=== PATIENT | male | born 1990 | race Caucasian/White ===

== ENCOUNTER 2017-02-24 08:24 | Emergency (ER) | payer SELFPAY ==
[2017-02-24 08:43] VITALS: BP 99/54; PULSE 78; TEMP 97.7; BMI 19.0
[2017-02-24] MEDS ORDERED: IBUPROFEN 400 MG TABLET (FP) PO ONE ×2 (09:21→09:34)
--- NOTE | 2017-02-24 09:23 | PDOC ---
History of Present Illness - General Chief Complaint: Pain, Acute Stated Complaint: NECK PROBLEM Time Seen by Provider: 02/24/17 09:11 History Source: Patient Exam Limitations: No Limitations - History of Present Illness Initial Comments: 02/24/17 11:36 My chief complaint: Swollen lymph nodes History of Present Illness: Pt. is a 26-year-old male with a history of HIV from patient reports that he started to notice swollen lymph nodes tonsillar area yesterday and felt as if he had chills. Patient denies having a sore throat or any difficulty swallowing or breathing. Patient is complaining of tenderness on lymph nodes. Patient denies any cough, nausea, vomiting, or diarrhea or any other symptoms. He reports that his last viral load a couple months ago was undetectable. Timing/Duration: getting worse Severity: mild Associated Symptoms: reports: fever/chills (since yesterday ), other (swelling of tonsillar lymph nodes) Past History - Past Medical History Allergies/Adverse Reactions: Allergies Allergy/AdvReac Type Severity Reaction Status Date / Time esomeprazole magnesium Allergy Verified 02/24/17 08:39 [From Nexium] sulfamethoxazole Allergy Verified 02/24/17 08:39 [From Bactrim] trimethoprim [From Bactrim] Allergy Verified 02/24/17 08:39 Home Medications: Ambulatory Orders Amoxicillin - [Amoxicillin 500mg Capsule -] 1,000 mg PO DAILY #20 capsule Other medical history: HIV since - Immunization History Immunization Up to Date: Yes - Suicide/Smoking/Psychosocial Hx Smoking History: Unknown if ever smoked Information on smoking cessation initiated: No Hx Alcohol Use: No Drug/Substance Use Hx: No Substance Use Type: None Review of Systems - Review of Systems Able to Perform ROS?: Yes Constitutional: Yes: Fever (subjective since yesterday ) HEENTM: No: Symptoms Reported Respiratory: No: Symptoms reported Cardiac (ROS): No: Symptoms Reported ABD/GI: No: Symptoms Reported : No: Symptoms Reported Musculoskeletal: No: Symptoms Reported Integumentary: No: Symptoms Reported Hematologic/Lymphatic: Yes: Swollen Glands (tonsillar b/l ) *Physical Exam - Vital Signs Last Vital Signs Temp Pulse Resp BP Pulse Ox 97.7 F 78 15 99/54 99 02/24/17 08:40 02/24/17 08:40 02/24/17 08:40 02/24/17 08:40 02/24/17 08:40 - Physical Exam General Appearance: Yes: Appropriately Dressed HEENT: positive: Pharyngeal Erythema. negative: Tonsillar Exudate, Tonsillar Erythema Neck: positive: Lymphadenopathy (R), Lymphadenopathy (L) (tonsillar ). negative : Rigidity, Tender lateral, Tender midline Respiratory/Chest: positive: Lungs Clear, Normal Breath Sounds. negative: Chest Tender, Respiratory Distress Cardiovascular: positive: Regular Rhythm, Regular Rate, S1, S2 Neurologic: positive: Alert, Normal Response, Responsive Medical Decision Making - Medical Decision Making 02/24/17 11:09 Pt. is a 26-year-old male with a history of HIV from patient reports that he started to notice swollen lymph nodes tonsillar area yesterday and felt as if he had chills. Patient denies having a sore throat or any difficulty swallowing or breathing. Patient is complaining of tenderness on lymph nodes. Patient denies any cough, nausea, vomiting, or diarrhea or any other symptoms. He reports that his last viral load a couple months ago was undetectable. Tonsilitis r/o strep r/o influenza A or B PLAN: throat C & S rapid negative influenza A nor B rapid based on clinical symptoms will treat with amoxicillin 1000 mg daily for 10 days 02/24/17 11:40 *DC/Admit/Observation/Transfer Diagnosis at time of Disposition: Pharyngitis Qualifiers: Pharyngitis/tonsillitis etiology: unspecified etiology Qualified Code(s): J02.9 - Acute pharyngitis, unspecified - Discharge Dispostion Disposition: HOME Condition at time of disposition: Stable - Prescriptions Prescriptions: Amoxicillin - [Amoxicillin 500mg Capsule -] 1,000 mg PO DAILY #20 capsule - Patient Instructions Additional Instructions: Drink a lot a fluids and rest Follow-up with your primary care provider within the next few days Return to emergency room if symptoms worsen or new symptoms develop Patient voiced understanding of discharge instructions and all questions were answered thank you for coming to [facility] emergency room 3 or medical needs today.
== END 2017-02-24 11:35 | disposition home or self-care (01) ==
LOC: JERFT 08:24 → JER 08:24 → JERFT 11:35
DX: J02.9 Acute pharyngitis, unspecified (principal); Z21 Asymptomatic human immunodeficiency virus [HIV] infection status
CPT/HCPCS: 87070; 87430; 87804; 99281-25